=== PATIENT | female | born 1965 | race Caucasian/White ===

== ENCOUNTER 2018-04-24 10:24 | Emergency (ER) | payer BC ==
--- OUTSIDE RECORDS SUMMARY | 2018-04-24 10:30 | XMS REPORT | Continuity of Care Document ---
:1965 External Reference #:[id number] Author Name Coty Pathak O.D. Address [address] [place] [address] Care Team Providers Name Role Phone Gee Mallory M.D. Primary Care Physician Unavailable Payers Type Date Identification Numbers Payment Provider Subscriber Policy Number: [id number] [facility] Kee Floyd PayID: [id number] [address] [address] [place] [address] Advance Directives Description No Information Available Problems Date Description Provider Status Onset: Rosacea Active Onset: Gastroesophageal reflux disease Active Onset: 03/29/2018 Regular astigmatism Coty Pathak O.D. Active Onset: 03/29/2018 Presbyopia Coty Pathak O.D. Active Onset: 03/29/2018 Hypermetropia Coty Pathak O.D. Active Onset: 03/10/2018 Late effect of superficial injury Divina Valentine O.D. 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 Active Onset: 03/09/2018 Corneal endothelial dystrophy Divina Valentine O.D. Active Onset: 03/09/2018 Injury of conjunctiva and corneal Divina Valentine O.D. Active abrasion without foreign body, right eye, initial encounter Family History Date Family Member(s) Problem(s) Comments Father No Current Problems Mother Glaucoma Social History Type Date Description Comments Sex Unknown Marital Status Legal Status: Occupation [employer] Work Status Full-Time Employment ETOH Use Occasionally consumes alcohol Recreational Drug Use Denies Drug Use Allergies, Adverse Reactions, Alerts Description No Known Drug Allergies Medications Medication Date Status Form Strength Qnty SIG Indications Ordering Provider Omeprazole Active Capsules DR 40mg [place], 00 Gee Shi Ofloxacin 03/09/20 Hx Solution 0.3% 10ml place 1 S05.01xA Divina Toribio (Ophthalmic) 16 - drop Meme, 03/28/20 into O.D. 18 right eye 4xday while awake Immunizations Description No Information Available Vital Signs Description No Information Available Results Description No Information Available Procedures Date Code Description Status 03/09/2018 66499 Contact Lens For Treatment Of Ocular Surface Disease Completed 03/09/2018 69258 New Patient Comprehensive Exam Completed 05/23/2013 67081 Determination Of Refractive State Completed 05/23/2013 68049 Est Patient Comprehensive Exam Completed 05/23/2013 60781 Pachymetry Completed 09/22/2011 94838 Determination Of Refractive State Completed 09/22/2011 61144 Est Patient Comprehensive Exam Completed 10/22/2009 69595 Determination Of Refractive State Completed 10/22/2009 08061 Est Patient Comprehensive Exam Completed 09/15/2007 64590 Determination Of Refractive State Completed 09/15/2007 18954 Est Patient Comprehensive Exam Completed 08/25/2005 19689 Determination Of Refractive State Completed 08/25/2005 12868 New Patient Comprehensive Exam Completed Encounters Type Date Location Provider Dx Diagnosis Office Visit 03/10/2018 Divina Nunn S05.01xS Inj conjunctiva and 9:30a , pc Carlito Valentine corneal abrasion w/o fb, r eye, sequela Plan of Treatment 03/29/2018 - Coty Pathak O.D.H40.033 Anatomical narrow angle, bilateralComments:Smoking can increase the risk of developing or worsening any eye related disease, as well as affect your overall health. If you are a smoker , we strongly recommend that you quit.If you are not a smoker, we strongly recommend that you do not start.H52.03 Hypermetropia, bilateralComments:You have Hyperopia, or far sightedness, I have given you a prescription for glasses.H52.4 PresbyopiaComments:You have presbyopia. This is when the lens in your eye loses the ability to change focus, and happens as we age. A pair of reading glasses will help you see up close.H52.223 Regular astigmatism, bilateralComments:Astigmatism is a common vision condition that happens when a person's cornea is not symmetrical. Dr. Pathak has given you a prescription to correct for this.
[2018-04-24 10:37] VITALS: BP 137/74
--- NOTE | 2018-04-24 10:51 | UC ---
Respiratory Complaint HPI - HPI Summary HPI Summary: Started w cough 6 days ago, pleuritic pain, fever/chills, body aches. symptoms started in [facility]. no sick contacts. has not tried anything. nonsmoker. - History of Current Complaint Chief Complaint: UCRespiratory Stated Complaint: COUGH CONGESTION Time Seen by Provider: 04/24/18 10:45 Hx Obtained From: Patient Hx Last Menstrual Period: NOW ?: No Onset/Duration: Gradual Onset Severity Initially: Moderate Severity Currently: Moderate Pain Intensity: 8 Aggravating Factors: Deep Breaths, Recumbent Position Alleviating Factors: Nothing Associated Signs And Symptoms: Positive: Fever, Chills, Pleuritic Chest Pain, URI, Nasal Congestion - Risk Factors Pulmonary Embolism Risk Factors: Negative, Recent Travel - Allergies/Home Medications Allergies/Adverse Reactions: Allergies Allergy/AdvReac Type Severity Reaction Status Date / Time azithromycin [From Zithromax] Allergy Vomiting Verified 04/24/18 10:38 Home Medications: Home Medications Dm/Acetaminophen/Doxylamine [Night Cold-Flu Relief Liq Gel] 2 each PO ONCE PRN 04/24/18 [History Confirmed 04/24/18] PMH/Surg Hx/FS Hx/Imm Hx Previously Healthy: Yes - Surgical History Surgical History: None - Social History Alcohol Use: Rare Substance Use Type: None Smoking Status (MU): Never Smoked Tobacco - Immunization History Most Recent Influenza Vaccination: not this year Review of Systems Constitutional: Fever, Chills, Fatigue Skin: Negative Eyes: Negative ENT: Sore Throat, Nasal Discharge, Sinus Congestion Respiratory: Shortness Of Breath, Cough Cardiovascular: Negative Gastrointestinal: Negative Neurological: Negative All Other Systems Reviewed And Are Negative: Yes Physical Exam Triage Information Reviewed: Yes Appearance: Ill-Appearing Vital Signs: Initial Vital Signs Temp 100.9 F 04/24/18 10:31 Pulse 95 04/24/18 10:31 Resp 16 04/24/18 10:31 BP 137/74 04/24/18 10:31 Pulse Ox 97 04/24/18 10:31 Vital Signs Reviewed: Yes Eyes: Positive: Conjunctiva Clear ENT: Positive: Pharynx normal, Nasal congestion, TMs normal, Uvula midline Neck: Positive: No Lymphadenopathy Respiratory: Positive: No respiratory distress, No accessory muscle use, Rhonchi Cardiovascular Exam: Normal Neurological: Positive: Alert Skin Exam: Normal UC Diagnostic Evaluation - Laboratory O2 Sat by Pulse Oximetry: 97 Respiratory Course/Dx - Course Course Of Treatment: cough, fever, chills w/ recent out of country travel. + febrile. will tx w/ antibx to cover bacterial source, also cough suppressant rx 'd. rapid flu neg, did not get flu shot this yr. - Differential Dx/Diagnosis Differential Diagnosis/HQI/PQRI: Asthma, Bronchitis, Influenza, Lower Resp Infection Provider Diagnoses: bronchitis Discharge - Sign-Out/Discharge Documenting (check all that apply): Patient Departure All imaging exams completed and their final reports reviewed: No Studies - Discharge Plan Condition: Fair Disposition: HOME Prescriptions: Benzonatate CAP* [Tessalon 100 MG CAP*] 100 mg PO TID 5 Days cap Doxycycline Hyclate 100 mg PO BID #14 tablet. Patient Education Materials: Upper Respiratory Infection (ED) Referrals: Gee Mallory MD [Primary Care Provider] - - Billing Disposition and Condition Condition: FAIR Disposition: Home
== END 2018-04-24 11:25 | disposition home or self-care (01) ==
LOC: UCEAST 10:24
DX: J40 Bronchitis, not specified as acute or chronic (principal); Z88.1 Allergy status to other antibiotic agents
CPT/HCPCS: 99212; G0463